=== PATIENT | male | born 1965 | race Caucasian/White ===

== ENCOUNTER → 2017-02-12 | Day surgery (SDC) | payer OTHER ==
[~2017-02-12] MED LIST: Lactated Ringers 1,000 ML IV SCH; Midazolam 1 MG/ML 2 ML SDV ONE; Propofol 200 MG/20 ML SDV ONE; fentaNYL 100 MCG/2 ML SDV ONE
[2017-02-12 09:13] VITALS: BP 106/67
--- NOTE | 2017-02-12 13:46 | OR ---
DATE OF PROCEDURE: 02/12/2017 PREOPERATIVE DIAGNOSIS: Colon cancer screening. POSTOPERATIVE DIAGNOSIS: A pedunculated polyp at 20 cm from the anal verge. PROCEDURE: Colonoscopy to the cecum with snare cautery polypectomy 20 cm from the anal verge. ANESTHESIA: IV anesthesia with monitored anesthesia care. INDICATION: This 51-year-old white male is referred for a colonoscopy for colon cancer screening. He has never had a colonoscopic exam. I counseled him for the procedure, including risks and alternatives, and he gave his informed consent to proceed. DESCRIPTION OF PROCEDURE: The patient was placed in the left lateral decubitus position. IV anesthesia was administered by the Anesthesia Service. Time-out was held. A rectal exam was performed, which was unremarkable. The flexible video Olympus colonoscope was introduced through his anus, up his rectum, and out his colon all the way to the cecum. Once the cecum was reached, the scope was slowly withdrawn examining the mucosa throughout. No mucosal abnormalities were noted until we reached 20 cm from the anal verge. Here, we saw a pedunculated polyp. The snare was passed about its base, it was elevated up away from the bowel wall and amputated as electrocautery was applied. The polyp was aspirated up onto the end of the scope, and the scope was withdrawn with the polyp retrieved from the end of the scope. The scope was reintroduced back to the polypectomy site. It was then withdrawn slowly, examining the remainder of the colon and rectum, which were unremarkable. The scope was retroflexed in the rectum with the distal rectum appearing unremarkable. The scope was straightened and removed. He tolerated the procedure well. Jerry Grigsby MD /[id number] KRISTA
== END ==
LOC: JP.SDS 06:24
PROVIDERS: ATTEND Surgery
DX: Z12.11 Encounter for screening for malignant neoplasm of colon (principal); D12.6 Benign neoplasm of colon, unspecified; E03.9 Hypothyroidism, unspecified; I10 Essential (primary) hypertension; M25.569 Pain in unspecified knee; G89.29 Other chronic pain; H91.90 Unspecified hearing loss, unspecified ear; F43.10 Post-traumatic stress disorder, unspecified; K21.9 Gastro-esophageal reflux disease without esophagitis; J30.9 Allergic rhinitis, unspecified; F17.200 Nicotine dependence, unspecified, uncomplicated; Z79.899 Other long term (current) drug therapy
CPT/HCPCS: 45385; J2250; J2704; J3010; J7120; 88305

== ENCOUNTER 2017-05-22 13:38 | Emergency (ER) | payer OTHER ==
[2017-05-22 14:01] VITALS: BP 122/74
[2017-05-22] MEDS ORDERED: Lidocaine 1% with EPINEPHrine 1:100,000 50 ML MDV SUBCUT STA (14:24)
[2017-05-22] MEDS ORDERED: Bacitracin Oint 1 GM U/D Packet TOP ONE (14:24)
--- NOTE | 2017-05-22 14:29 | EDM.PDOC ---
ED HPI GENERAL MEDICAL PROBLEM - General Chief Complaint: Laceration Stated Complaint: RIGHT FOOT CUT Time Seen by Provider: 05/22/17 14:22 Source of Information: Reports: Patient, Family, RN Notes Reviewed History Limitations: Reports: No Limitations - History of Present Illness INITIAL COMMENTS - FREE TEXT/NARRATIVE: 51-year-old gentleman presents emergency department today with complaint of laceration to his right foot, [place] last tetanus is in 2013 he has no functional complaints Right Feet Pain Score (Numeric/FACES): 3 - Related Data Allergies Allergy/AdvReac Type Severity Reaction Status Date / Time No Known Allergies Allergy Verified 05/22/17 14:11 Home Meds: Home Meds Levothyroxine 150 mcg PO ACBREAKFAST 02/10/17 [History] Lisinopril 40 mg PO DAILY 02/10/17 [History] Nicotine Polacrilex [Nicotine Gum] 2 mg BC Q4H PRN 02/10/17 [History] Omeprazole 20 mg PO BIDAC 02/10/17 [History] QUEtiapine Fumarate [Quetiapine Fumarate] 400 mg PO BEDTIME 02/10/17 [History] Past Medical History Gastrointestinal History: Reports: GERD Musculoskeletal History: Reports: Arthritis, Back Pain, Chronic Psychiatric History: Reports: Depression, PTSD Endocrine/Metabolic History: Reports: Hypothyroidism - Infectious Disease History Infectious Disease History: Reports: Chicken Pox - Past Surgical History Neurological Surgical History: Reports: Spinal Fusion Social & Family History - Tobacco Use Smoking Status *Q: Never Smoker Second Hand Smoke Exposure: No - Caffeine Use Caffeine Use: Reports: Coffee, Soda - Recreational Drug Use Recreational Drug Use: No ED ROS GENERAL - Review of Systems Review Of Systems: See Below Skin: Reports: Wound Neurological: Reports: No Symptoms ED EXAM, SKIN/RASH Exam: See Below Text/Narrative:: examination of the right foot he has full range of motion of all digits he does have a partially through the dermis laceration 1.5 cm in length medial aspect right foot located over the first metatarsal, radial pulses +2 ED SKIN PROCEDURES - Laceration/Wound Repair Right Foot Lac/Wound length In cm: 1.5 Appearance: Subcutaneous, Linear, Clean Distal NVT: Neuro & Vascular Intact, No Tendon Injury Anesthetic Type: Local Local Anesthesia - Lidocaine (Xylocaine): 1% With EPI Local Anesthetic Volume: 2cc Skin Prep: Chlorhexidine (Hibiciens) Saline Irrigation (cc's): 20 Exploration/Debridement/Repair: Wound Explored, in a Bloodless Field, Explored to Base Closed with: Sutures Suture Size: 4-0 # of Sutures: 3 Suture Type: Prolene Sterile Dressing Applied: Nurse Tetanus Status Addressed: Yes (2013) Complications: No Course - Vital Signs Last Recorded V/S: Last Vital Signs Temp 97.7 F 05/22/17 14:10 Pulse 101 H 05/22/17 14:10 Resp 16 05/22/17 14:10 BP 122/74 05/22/17 14:10 Pulse Ox 96 05/22/17 14:10 - Orders/Labs/Meds Meds: Medications Discontinued Medications Generic Name Dose Route Start Last Admin Trade Name Mell PRN Reason Stop Dose Admin Bacitracin 1 dose 05/22/17 14:24 05/22/17 14:35 Bacitracin Oint 1 Gm TOP 05/22/17 14:25 1 dose ONETIME ONE Administration Lidocaine/Epinephrine 20 ml 05/22/17 14:24 05/22/17 14:35 Xylocaine 1% With Epinephrine 1:100,000 SUBCUT 05/22/17 14:25 20 ml NOW STA Administration Departure - Departure Time of Disposition: 14:44 Disposition: Home, Self-Care 01 Condition: Good Clinical Impression: Laceration of right foot Qualifiers: Encounter type: initial encounter Qualified Code(s): S91.311A - Laceration without foreign body, right foot, initial encounter - Discharge Information Referrals: Lamine Tarango MD [Primary Care Provider] - Forms: ED Department Discharge Additional Instructions: Follow wound care instruction sheet, suture removal in 10 days, call return to the emergency department worsening of symptoms - Assessment/Plan Plan: Assessment Acuity = acute Site and laterality = 1.5 centimeters laceration medial aspect right foot Etiology = secondary trauma Manifestations = none Location of injury = Home Lab values = none Plan Suture removal in 10 days, follow wound care instruction sheet follow-up with primary care for suture removal Patient was in agreement with the plan all questions were answered, they were instructed to return to the emergency department or call for worsening symptoms. This note was dictated using [employer] voice recognition software please call with any questions.
== END 2017-05-22 15:02 | disposition home or self-care (01) ==
LOC: JP.ED 13:38
DX: S91.311A Laceration without foreign body, right foot, initial encounter (principal); K21.9 Gastro-esophageal reflux disease without esophagitis; E03.9 Hypothyroidism, unspecified; Z79.899 Other long term (current) drug therapy; W18.49XA Other slipping, tripping and stumbling without falling, initial encounter; Y92.830 Public park as the place of occurrence of the external cause
CPT/HCPCS: 12001; 99282-25; 99283-25

== ENCOUNTER 2019-12-13 16:27 | Emergency (ER) | payer OTHER ==
[2019-12-13 18:03] VITALS: BP 175/91; PULSE 104
--- NOTE | 2019-12-13 18:35 | EDM.PDOC ---
ED HPI GENERAL MEDICAL PROBLEM - General Chief Complaint: Laceration Stated Complaint: PUNCTURED WEB BETWEEN THUMB AND FINGER Time Seen by Provider: 12/13/19 18:23 Source of Information: Reports: Patient, RN Notes Reviewed History Limitations: Reports: No Limitations - History of Present Illness INITIAL COMMENTS - FREE TEXT/NARRATIVE: 54-year-old gentleman presents emergency department today with a puncture wound on his left hand between digits 1 and 2 he did this with a Flores screwdriver head on a drill bit no functional complaints Left Hand Pain Score (Numeric/FACES): 9 - Related Data Allergies Allergy/AdvReac Type Severity Reaction Status Date / Time No Known Allergies Allergy Verified 12/13/19 18:09 Home Meds: Home Meds Levothyroxine 150 mcg PO ACBREAKFAST 02/10/17 [History] Lisinopril 40 mg PO DAILY 02/10/17 [History] Omeprazole 20 mg PO BIDAC 02/10/17 [History] QUEtiapine Fumarate [Quetiapine Fumarate] 400 mg PO BEDTIME 02/10/17 [History] Past Medical History Cardiovascular History: Reports: Hypertension Gastrointestinal History: Reports: GERD Musculoskeletal History: Reports: Arthritis, Back Pain, Chronic Psychiatric History: Reports: Depression, PTSD Endocrine/Metabolic History: Reports: Hypothyroidism - Infectious Disease History Infectious Disease History: Reports: Chicken Pox - Past Surgical History Neurological Surgical History: Reports: Spinal Fusion Musculoskeletal Surgical History: Reports: Other (See Below) Social & Family History - Tobacco Use Smoking Status *Q: Never Smoker Second Hand Smoke Exposure: No - Caffeine Use Caffeine Use: Reports: Coffee - Recreational Drug Use Recreational Drug Use: No ED ROS GENERAL - Review of Systems Review Of Systems: See Below Constitutional: Reports: No Symptoms Skin: Reports: Wound ED EXAM, SKIN/RASH Exam: See Below Exam Limited By: No Limitations General Appearance: Alert, WD/WN, No Apparent Distress Front/Back Body Diagram: 1 - Puncture wound approximately 1 cm there is a flap the open puncture is approximately half a centimeter completely through the dermis Course - Vital Signs Last Recorded V/S: Last Vital Signs Temp 95.2 F L 12/13/19 18:22 Pulse 104 H 01/20/20 18:22 Resp 16 12/13/19 18:22 BP 175/91 H 12/13/19 18:22 Pulse Ox 97 12/13/19 18:22 Departure - Departure Time of Disposition: 18:34 Disposition: Home, Self-Care 01 Condition: Good Clinical Impression: Puncture wound - injury - Discharge Information Instructions: Puncture Wound, [id number] Referrals: Lamine Tarango MD [Primary Care Provider] - Additional Instructions: Follow-up primary care as needed, call return to the emergency department worsening of symptoms Sepsis Event Note - Evaluation Sepsis Screening Result: No Definite Risk - Focused Exam Vital Signs: Vital Signs Temp Pulse Resp BP Pulse Ox 12/13/19 18:22 95.2 F L 104 H 16 175/91 H 97 12/13/19 18:02 95.2 F L 104 H 16 175/91 H 97 Date Exam was Performed: 12/13/19 Time Exam was Performed: 18:31 - Assessment/Plan Plan: Assessment Acuity = acute Site and laterality = puncture wound left hand Etiology = trauma with a screwdriver Manifestations = none Location of injury = Home Lab values = none Plan Last tetanus was in 2013 because it was a puncture wound elected to not close the wound and just use Steri-Strips and gauze follow-up with primary care as needed This note was dictated using [employer] voice recognition software please call with any questions on syntax or grammar.
== END 2019-12-13 18:45 | disposition home or self-care (01) ==
LOC: JP.ED 16:27
DX: S61.432A Puncture wound without foreign body of left hand, initial encounter (principal); I10 Essential (primary) hypertension; K21.9 Gastro-esophageal reflux disease without esophagitis; M19.90 Unspecified osteoarthritis, unspecified site; E03.9 Hypothyroidism, unspecified; Z79.899 Other long term (current) drug therapy; W26.8XXA Contact with other sharp object(s), not elsewhere classified, initial encounter
CPT/HCPCS: 99282; 99283

== ENCOUNTER 2020-04-10 06:26 | Day surgery (SDC) | payer OTHER ==
[2020-04-10] MEDS ORDERED: Sodium Chloride 0.9% 1,000 ML IV SCH (07:00)
[2020-04-10] MEDS ORDERED: fentaNYL 100 MCG/2 ML SDV ONE (07:22)
[2020-04-10] MEDS ORDERED: Midazolam 1 MG/ML 2 ML SDV ONE (07:22)
[2020-04-10] MEDS ORDERED: Propofol 200 MG/20 ML SDV ONE ×2 (07:22→08:00)
[2020-04-10 09:13] VITALS: BP 115/81; PULSE 71
--- NOTE | 2020-04-10 14:26 | OR ---
DATE OF PROCEDURE: 04/10/2020 SURGEON: Wade Bergeron MD PROCEDURE: Colonoscopy. FINDINGS: 1. Very poor colon prep. 2. Ascending colon polyp, approximately 8 mm, completely removed using hot snare wire device. 3. Sigmoid colon polyp, approximately 5 mm, completely removed using cold biopsy forceps. COMPLICATION: None. CORN LAB TECHNICIAN: None. ANESTHESIA: MAC. PREOPERATIVE DIAGNOSIS: History of colon polyps. POSTOPERATIVE DIAGNOSIS: History of colon polyps. RISKS: Risks, benefits, alternatives, and limitations including, but not limited to, infection, bleeding, and perforation were explained to the patient, who wished to proceed. PROCEDURE IN DETAIL: The patient was placed in left lateral decubitus position. Digital rectal exam was performed without abnormality. The scope was introduced and advanced atraumatically to the ileocecal valve. The scope was brought back through the ascending, transverse, descending colon, and retroflexed. No evidence of old or new blood. The aforementioned polyps were identified and completely removed using the wire and biopsy devices as described above. No abnormal bleeding was noted on retroflex. The prep was poor due to solid and liquid stool. Suction irrigation attempts were made to see approximately 90% of the luminal surface. No abnormalities on retroflex. The patient tolerated the procedure well. Wade Bergeron MD /[id number]
== END 2020-04-10 09:29 | disposition home or self-care (01) ==
LOC: JP.SDS 06:26
PROVIDERS: ATTEND Surgery
DX: Z12.11 Encounter for screening for malignant neoplasm of colon (principal); D12.2 Benign neoplasm of ascending colon; E66.9 Obesity, unspecified; Z68.29 Body mass index [BMI] 29.0-29.9, adult; Z86.010 Personal history of colon polyps
CPT/HCPCS: 45380; 45385; J2250; J2704; J3010; J7030